=== PATIENT | female | born 1985 | race Two or more races ===

== ENCOUNTER 2018-08-14 08:41 | Emergency (ER) | payer BC, OTHER ==
[~2018-08-14] VITALS: Ht 167.6 cm; Wt 113.4 kg
[~2018-08-14 08:41] MED LIST: BENADRYL25 MG PO; IBUPROFEN600 MG ORAL; NKM; NORCO 5-325 TA1 EACH ORAL; no home meds
[2018-08-14] MEDS ORDERED: DiphenhydrAMINE 50mg/ml Inj IM ONE (09:00)
--- NOTE | 2018-08-14 09:20 | Emergency Room Report ---
History of Present Illness General Chief Complaint: Allergic Reaction Source: Patient Present Illness HPI Patient presents with complaints of allergic reaction with swelling sensation to her throat also some itching sensation Patient reports that this is happening more often over the past several years Denies any chest pain denies any shortness of breath Denies any back or flank pain Patient has not seen any medical follow-up for this reaction in the past Denies any change with sleeping or eating habits Reports that it seems to happen mainly in the morning time Allergies: Coded Allergies: No Known Allergies (Unverified , 12/28/12) Patient History Past Medical History: see triage record Pertinent Family History: none Now: No Reviewed Nursing Documentation: PMH: Agreed; PSxH: Agreed Nursing Documentation-PMH Past Medical History: No Stated History Review of Systems All Other Systems: negative except mentioned in HPI Physical Exam Vital Signs Date Time Temp Pulse Resp B/P (MAP) Pulse Ox O2 Delivery O2 Flow Rate FiO2 08/14/18 08:43 97.5 77 18 139/87 100 Room Air Sp02 EP Interpretation: reviewed, normal General Appearance: well appearing, no apparent distress Head: normocephalic, atraumatic Eyes: bilateral eye PERRL, bilateral eye EOMI ENT: hearing grossly normal, normal pharynx, TMs + canals normal, uvula midline , other - airway patent, no stridor Neck: full range of motion, supple, no meningismus, no bony tend Respiratory: lungs clear, normal breath sounds, no rhonchi, no respiratory distress, no retraction, no accessory muscle use Cardiovascular #1: normal peripheral pulses, regular rate, rhythm, no edema, no gallop, no JVD, no murmur Gastrointestinal: normal bowel sounds, non tender, soft, no mass, no organomegaly, non-distended, no guarding, no hernia, no pulsatile mass, no rebound Musculoskeletal: normal inspection Neurologic: oriented x3, responsive, 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 tested, motor strength/ tone normal, sensory intact Psychiatric: mood/affect normal Skin: normal color, no rash, warm/dry, palpation normal Lymphatic: normal inspection, no adenopathy Medical Decision Making Diagnostic Impression: Primary Impression: Allergic reaction ER Course Patient reports similar reactions in the past reports that she has good reaction to Benadryl Has not taken any medicine yet Patient had acute intervention performed observed further feels symptomatically improved Patient was also provided an EpiPen And reports that she will be following closely with primary physician Last Vital Signs Date Time Temp Pulse Resp B/P (MAP) Pulse Ox O2 Delivery O2 Flow Rate FiO2 08/14/18 08:50 77 18 Room Air 08/14/18 08:43 97.5 139/87 100 Status: improved Disposition: HOME, SELF-CARE Condition: Improved Scripts Epinephrine (Epipen 2-Aleksey) 0.3 Mg/0.3 Ml Auto.injct 0.3 MG IM PRN, #1 EA Prov: Parth Sotelo DO 08/14/18 Methylprednisolone (Methylprednisolone*) 4MG Dspk 4 MG ORAL DIRECTED for 6 Days, #21 EA 0 Refills Day 1: Two tablets before breakfast, one after lunch, one after dinner, and two at bedtime. If started late in the day, take all six tablets at once or divide into two or three doses, unless otherwise directed by prescriber. Day 2: One tablet before breakfast, one after lunch, one after dinner, and two at bedtime Day 3: One tablet before breakfast, one after lunch, one after dinner, and one at bedtime Day 4: One tablet before breakfast, one after lunch, and one at bedtime Day 5: One tablet before breakfast and one at bedtime Day 6: One tablet before breakfast Prov: Parth Sotelo DO 08/14/18 Diphenhydramine HCl (Benadryl) 25 Mg Capsule 25 MG PO Q8HR, #20 CAP Prov: Parth Sotelo DO 08/14/18 Referrals: NOT CHOSEN IPA/MD,REFERRING (PCP) Additional Instructions: Patient is provided with the discharge instructions notified to follow up with primary doctor in the next 2-3 days otherwise return to the er with any worsening symptoms. Please note that this report is being documented using DDN technology. This can lead to erroneous entry secondary to incorrect interpretation by the dictating instrument. Parth Sotelo DO Aug 14, 2018 09:20
[2018-08-14 09:46] VITALS: BP 143/93
[2018-08-14] MEDS ORDERED: EPIPEN 2-P0.3 MG/0.3 IM (09:51)
[2018-08-14] MEDS ORDERED: MEDROL DOSEPAK4 MG ORAL (09:51)
[2018-08-14] MEDS ORDERED: BENADRYL25 M3 PO (09:51)
[2018-08-14 09:54] VITALS: BP 143/93
== END 2018-08-14 09:54 | disposition home or self-care (01) ==
LOC: EMR 08:59
DX: T78.40XA Allergy, unspecified, initial encounter (principal); X58.XXXA Exposure to other specified factors, initial encounter
CPT/HCPCS: 96372; 99283; J1200; J7512